=== PATIENT | female | born 1995 | race Two or more races ===

== ENCOUNTER 2023-07-09 15:55 | Emergency (ER) | payer OTHER ==
[~2023-07-09] VITALS: Ht 160 cm; Wt 63.5 kg
[2023-07-09] MEDS ORDERED: PRENA1 TRUE CO1 EACH PO (16:06)
[2023-07-09 18:43] LABS: HEMATOCRIT 37.5 % (36.0-45.00); HEMOGLOBIN 13.2 g/dL (12.0-15.00); MEAN CELL VOLUME 86.6 fL (80.00-100.00); MEAN CORPUSCULAR HEMOGLOBIN 30.4 pg (27.00-32.0); MEAN CORPUSCULAR HGB CONC 35.1 g/dl (32.0-36.0); PLATELET COUNT 404 K/uL (150-450); RED BLOOD COUNT 4.34 M/uL (4.00-6.00); RED CELL DISTRIBUTION WIDTH 12.8 % (11.5-14.5)
[2023-07-09 19:00] LABS: URINE APPEARANCE Clear; URINE BILIRRUBIN Negative (NEGATIVE); URINE BLOOD Negative; URINE COLOR Yellow; URINE GLUCOSE Negative (NEGATIVE); URINE LEUKOCYTE Negative; URINE NITRATE Negative; URINE PROTEIN Negative (NEGATIVE); URINE UROBILINOGEN 0.2 E.U./dl
[2023-07-09 19:07] LABS: URINE BACTERIA 191.5 uL (0.0-1933); URINE RBC 13.7 uL (0.0-20.8); URINE WBC 4.3 uL (0.0-23.2)
[2023-07-09 19:13] LABS: CALCIUM 9.4 mg/dL (8.5-10.1); CREATININE SERUM 0.58 mg/dL (0.55-1.02); GFR 122.06; POTASSIUM 3.53 mEq/L (3.5-5.1)
== END 2023-07-09 21:30 ==
LOC: ER 15:56
PROVIDERS: Nurse Practitioner Family
DX: O26.891 Other specified pregnancy related conditions, first trimester (principal); Z3A.01 Less than 8 weeks gestation of pregnancy; R51.9 Headache, unspecified; Z88.6 Allergy status to analgesic agent; Z20.822 Contact with and (suspected) exposure to COVID-19

== ENCOUNTER 2024-02-19 07:25 | Inpatient (IN) | payer OTHER ==
[~2024-02-19] VITALS: Ht 152.4 cm; Wt 77.1 kg
[~2024-02-19 07:25] MED LIST: PRENA1 TRUE CO1 EACH PO
[2024-02-19] MEDS ORDERED: OXYTOCIN 500 ML IV ONE (07:45)
[2024-02-19] MEDS ORDERED: RINGERS SOLUTION,LACTATED 1,000 ML IV SCH (07:45)
[2024-02-19 08:06] LABS: URINE BACTERIA 918.5 uL (0.0-1933); URINE CAST 4.19 uL (0.0-1.40); URINE EPITHELIAL CELLS 75.4 uL (0.0-38.8); URINE RBC 246.1 uL (0.0-20.8); URINE WBC 20.2 uL (0.0-23.2)
[2024-02-19 08:11] LABS: URINE BILIRRUBIN NEGATIVE (NEGATIVE); URINE BLOOD MODERATE; URINE GLUCOSE NEGATIVE (NEGATIVE); URINE KETONE NEGATIVE (NEGATIVE); URINE LEUKOCYTE NEGATIVE; URINE NITRATE NEGATIVE; URINE PROTEIN 30 (NEGATIVE); URINE UROBILINOGEN 0.2 E.U./dl
[2024-02-19 08:15] LABS: HEMATOCRIT 30.9 % (36.0-45.00); HEMOGLOBIN 10.4 g/dL (12.0-15.00); MEAN CELL VOLUME 77.5 fL (80.00-100.00); MEAN CORPUSCULAR HGB CONC 33.5 g/dl (32.0-36.0); PLATELET COUNT 355 K/uL (150-450); RED BLOOD COUNT 3.99 M/uL (4.00-6.00); RED CELL DISTRIBUTION WIDTH 14.8 % (11.5-14.5)
[2024-02-19 08:24] LABS: URINE APPEARANCE CLEAR; URINE COLOR YELLOW
[2024-02-19 08:32] LABS: INR 0.94; PARTIAL THROMBOPLASTIN TIME 26.1 SECONDS (22.0-34.0); PROTHROMBIN TIME 10.3 SECONDS (9.0-11.5)
[2024-02-19 08:36] LABS: ALBUMIN 2.6 gm/dL (3.4-5.0); BILIRUBIN TOTAL 0.19 mg/dL (0.3-1.2); CALCIUM 8.7 mg/dL (8.5-10.1); CREATININE SERUM 0.62 mg/dL (0.55-1.02); GFR 113.02; GLOBULINA 3.8 G/DL (2.4-3.5); POTASSIUM 3.99 mEq/L (3.5-5.1); TOTAL PROTEIN 6.4 gm/dL (6.4-8.2)
[2024-02-19] MEDS ORDERED: ERYTHROMYCIN BASE 1 GM TUBE OP ONE ×2 (14:38→15:30)
[2024-02-19] MEDS ORDERED: CHLORHEXIDINE GLUCONATE 120 ML BOTTLE TOP ONE ×2 (14:38→15:30)
[2024-02-19] MEDS ORDERED: OXYTOCIN 20 UNITS/1000ML RL PIGGYBAG IV ONE (14:38)
[2024-02-19] MEDS ORDERED: LIDOCAINE HCL 1% 10ML VIAL ONE (14:38)
[2024-02-19] MEDS ORDERED: OXYTOCIN 1,000 ML IV SCH (15:30)
[2024-02-19] MEDS ORDERED: OXYTOCIN 1,000 ML IV NR (16:00)
[2024-02-19] MEDS ORDERED: DOCUSATE SODIUM 100MG CAP PO SCH (17:00)
[2024-02-19] MEDS ORDERED: ACETAMINOPHEN 500 MG GEL..CAP PO PRN (21:30)
[2024-02-20 07:22] LABS: HEMATOCRIT 30.2 % (36.0-45.00); HEMOGLOBIN 10.1 g/dL (12.0-15.00); MEAN CELL VOLUME 79.2 fL (80.00-100.00); MEAN CORPUSCULAR HEMOGLOBIN 26.4 pg (27.00-32.0); MEAN CORPUSCULAR HGB CONC 33.4 g/dl (32.0-36.0); PLATELET COUNT 323 K/uL (150-450); RED BLOOD COUNT 3.82 M/uL (4.00-6.00); RED CELL DISTRIBUTION WIDTH 14.9 % (11.5-14.5)
[2024-02-20] MEDS ORDERED: PNV,CALCIUM 72/IRON/FOLIC ACID 1 TAB TABLET PO SCH (09:00)
== END 2024-02-21 14:47 | disposition home or self-care (01) | DRG 807 ==
LOC: LDR 07:25 → OB/GYN 07:25
PROVIDERS: Obstetrics & Gynecology; Obstetrics & Gynecology Gynecology; ADMIT Obstetrics & Gynecology; ATTEND Obstetrics & Gynecology
PROC: 10E0XZZ Delivery of Products of Conception, External Approach (ICD-10-PCS; principal; 2024-02-19)
PROC: 0UQG7ZZ Repair Vagina, Via Natural or Artificial Opening (ICD-10-PCS; 2024-02-19)
PROC: 4A1HXCZ Monitoring of Products of Conception, Cardiac Rate, External Approach (ICD-10-PCS; 2024-02-19)
DX: O71.4 Obstetric high vaginal laceration alone (principal); Z37.0 Single live birth; Z3A.38 38 weeks gestation of pregnancy; Z20.822 Contact with and (suspected) exposure to COVID-19